=== PATIENT | male | born 1995 | race African-American/Black ===

== ENCOUNTER 2025-01-26 09:19 | Emergency (ER) | payer SELFPAY ==
[2025-01-26 09:42] VITALS: BP 127/96; PULSE 72; RESP 16; TEMP 36.2; O2SAT 100
--- NOTE | 2025-01-26 10:00 | ED_ITS ---
HPI - Dental/Oral General Chief complaint: Dental/Oral Stated complaint: Dental Pain Time Seen by Provider: 01/26/25 09:50 Source: patient and RN notes reviewed Mode of arrival: ambulatory Limitations: no limitations History of Present Illness HPI Narrative: 29-year-old male presents [facility] complaining of right lower dental pain for approximately 3-5 days. 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 Patient says he has had teeth extracted before. Patient said he cannot get into a dentist right now because he is busy working. Patient denies any fevers, body aches, chills, difficulty breathing, difficulty swallowing, trismus, or pain or swelling under his tongue. Related Data Allergies Allergy/AdvReac Type Severity Reaction Status Date / Time No Known Allergies Allergy Verified 01/26/25 09:41 Review of Systems Review of Systems: CONSTITUTIONAL: Denies fever, chills, or sweats. EYES: Denies visual changes, redness, or discharge. ENT: Denies rhinorrhea, congestion, sore throat, difficulty swallowing, or otalgia. MOUTH: Positive for dental pain. CARDIOVASCULAR: Denies chest pain, palpitations, or edema. RESPIRATORY: Denies cough or dyspnea. GASTROINTESTINAL: Denies abdominal pain, nausea, vomiting, or diarrhea. GENITOURINARY: Denies dysuria or hematuria. SKIN: Denies rash or itching. MUSCULOSKELETAL: Denies back pain, joint pain, or myalgia. NEUROLOGIC: Denies headache, numbness, or weakness. PSYCHIATRIC: Denies anxiety or depression. All other systems reviewed are negative, except as documented in HPI. PMFSH Comments At the time of my signature, I reviewed and agree with the nursing past medical, surgical, social, and family history. There is no relevant family history pertinent to the patient complaint. Exam Narrative: GENERAL: This is a well-nourished, well-developed adult, in no apparent distress. They are non ill-appearing, nontoxic appearing. Patient is wearing sunglasses. HEAD: normocephalic, atraumatic. EARS: External ears normal, Hearing grossly intact. NOSE: External nose normal THROAT: Mucous membranes moist, posterior pharynx clear, without erythema or swelling. Uvula midline. OROPHARYNX: Missing teeth. Gross tooth decay. No gingivitis. Area a swelling and fluctuance under 3rd and 2nd molar to the right lower jaw. No exudate. No trismus. No Pain or swelling of the tongue. Tongue is yellow and coated. NECK: Neck supple, non-tender without lymphadenopathy, masses or thyromegaly. CARDIOVASCULAR: Regular rate and rhythm RESPIRATORY: Respiratory rate normal, respiratory effort nonlabored, no respiratory distress SKIN: warm, Dry, intact with no suspicious lesions or rash, good texture and turgor. NEURO: awake, alert, and oriented to person, place and time. There were no obvious focal neurologic abnormalities. EXTREMITIES: No joint tenderness, effusion, or edema noted. Course Course Emergency Course: Portions of this record may have been created with voice recognition software Level of Care: Express Care Visit Vital Signs Vital signs: Vital Signs Temperature 97.2 F L 01/26/25 09:42 Pulse Rate 72 01/26/25 09:42 Respiratory Rate 16 01/26/25 09:42 Blood Pressure 127/96 H 01/26/25 09:42 Pulse Oximetry 100 01/26/25 09:42 Temperature 97.2 F L 01/26/25 09:42 Pulse Rate 72 01/26/25 09:42 Respiratory Rate 16 01/26/25 09:42 Blood Pressure 127/96 H 01/26/25 09:42 Pulse Oximetry 100 01/26/25 09:42 Reviewed MDM - Dental/Oral MDM Narrative Medical decision making narrative: Patient has dental abscess low 2nd and 3rd molar on the right lower jaw. Will treat with Augmentin. Advised patient to go see dentist soon as possible. Advised patient to brushes teeth twice a day and floss twice a day. Discussed physical exam findings. Advised supportive measures and signs/symptoms to go to the ER. Pt is appropriate for outpt treatment and f/u. Differential Diagnosis Differential diagnosis: Likely gingival abscess, toothache, dental abscess and fracture of tooth Critical Care Time Critical Care Time Critical Care Time: No Discharge Plan Discharge Clinical Impression: Dental abscess Patient Disposition: Home Condition: Stable Instructions: Antibiotic Form, Dental Abscess (ED) Additional Instructions: Take the antibiotics as directed. You may alternate Tylenol and ibuprofen as needed for pain. You may use viscous lidocaine as needed for pain in your mouth. Use a Q-tip and apply directly to the affected area. [place] your teeth and floss at least 2 times a day. You may use mouthwash after each brushing as well. Follow-up with dentist next week. He developed worsening swelling, fevers, difficulty swallowing or breathing, difficulty opening her jaw, swelling under the tongue, or any other concerns please go to the ER immediately. Patient Language: [place] Prescriptions: New lidocaine HCl [Lidocaine Viscous] 2 % solution 1 applic mucous membrane TID PRN (Reason: pain) Qty: 100 0RF amoxicillin-pot clavulanate 875-125 mg tablet 1 tablet PO Q12H 10 Days Qty: 20 0RF Follow-up/Referrals: Kiera Silva MD [Physician] - Time of Disposition: 09:57
== END 2025-01-26 10:01 | disposition home or self-care (01) ==
DX: K04.7 Periapical abscess without sinus (principal)
CPT/HCPCS: 99203; G0463